=== PATIENT | male | born 1945 | race Caucasian/White ===

== ENCOUNTER → 2016-07-26 | Day surgery (SDC) | payer MEDICARE, BC ==
[~2016-07-26] MED LIST: ALBUTEROL17 GM INH; AMLODIPINE BESY10 MG PO; ASPIRIN81 M2 PO; CADUET 10 MG/401 TAB PO; COUMADIN7.5 MG PO; DARVOCET-N 1001 TAB PO; DIOVAN320 MG PO; FLONASE 0.05% N16 G1; HCTZ PO; HYDROCHLOROTHIA25 MG PO; LIPITOR; LIPITOR20 MG PO; LOSARTAN POTAS100 MG PO; MOBIC PO; NEURONTIN600 MG PO; PHENERGAN DM; SIMVASTATIN40 MG PO; TRAZODONE HCL150 MG PO; TUSSIONEX PENN480 ML PO; ZITHROMAX1 G/PKT PO; ZOCOR
--- NOTE | ~2016-07-26 | OR ---
Unit #: [id number] #: [id number] Patient: CRISTIAN BRAN [id number] [address] [place], [place] [address] [id number] MR#: [id number] NAME: CRISTIAN BRAN ROOM: Date of Procedure: 07/26/2016 Admission Date: 07/26/2016 Surgeon: Kumar Galvez Jr., M.D. : 1945 Attending Physician: Kumar Galvez Jr., M.D. Primary Care Physician: Freddie Phipps Jr., M.D. OPERATIVE REPORT INDICATIONS FOR PROCEDURE The patient is a 71-year-old white male, who recently called the office to set up colonoscopy for followup. He has had a past history of colon polyps and no colonoscopy for over 5 years. He has had no change in bowel habits. He has done well. He is brought in this time after prep at home for colonoscopy. He understands the procedure including risks, including that of perforation and bleeding, and consents. PREOPERATIVE DIAGNOSIS Past history of colon polyps, rule out recurrence. POSTOPERATIVE DIAGNOSES Two small polyps in the sigmoid colon and what appeared to be an anastomosis or could have been very large diverticulum. These polyps were 1 to 2 mm in diameter and appeared benign and there was extensive diverticulosis of the colon with very poor prep. ANESTHESIA MAC anesthesia. PROCEDURE PERFORMED Flexible colonoscopy to the cecum with biopsies of 2 small polyps of the rectosigmoid area. DESCRIPTION OF PROCEDURE The patient was positioned in White position with left side down. After being given MAC anesthesia, digital rectal examination was performed, which revealed no palpable mass or tenderness. No blood or stool in the rectal ampulla. Prostate was normal by palpation. The Olympus colonoscope was advanced through the anal canal up the rectum and retroflexed down to the area of the anorectal region. There was no evidence of any fissures. No significant internal hemorrhoids. The scope was then straightened and advanced up in the rectosigmoid area where there appeared to be an anastomosis. There were 2 small polyps in this area. They were 1 to 2 mm in diameter. They were basically removed with a couple of bites with the cold biopsy forceps each. These were sent to pathology. There was no evidence of any bleeding from the biopsy site. The scope was then advanced around the sigmoid area, where there was extensive diverticulosis with tortuosity requiring multiple manipulations. The scope was then finally advanced in the descending colon, around the splenic flexure and the transverse colon, around hepatic flexure and ascending colon, down in the area of the cecum. The light from the tip of Unit #: [id number] #: [id number] Patient: CRISTIAN BRAN the scope could be seen transilluminating through right lower quadrant abdominal wall area. Multiple attempts advancing the scope up the distal ileum were unsuccessful. The scope was slowly removed. There were no tumors, cancer, AVMs. No evidence of any colitis or acute diverticulitis. The caliber of the colon appeared normal throughout except for tortuosity of the sigmoid colon. There was extensive black-diverticulosis without diverticulitis and the 2 polyps described above and a possibly a previous surgical procedure on the sigmoid colon. The patient tolerated the procedure well and discharged in satisfactory condition. Dictated by... Kumar Galvez Jr., M.Jeffrey. LIZZY/elisa TD: 07/26/2016 08:43 JOB #: [id number] OPERATIVE REPORT Page 1 of 1 X Kumar Galvez MD X PROCEDURE OPERATIVE NOTE
== END | disposition home or self-care (01) ==
LOC: COPS 05:36
DX: Z12.11 Encounter for screening for malignant neoplasm of colon (principal); D12.5 Benign neoplasm of sigmoid colon; K57.30 Diverticulosis of large intestine without perforation or abscess without bleeding; Z86.010 Personal history of colon polyps; I10 Essential (primary) hypertension; E66.9 Obesity, unspecified; Z68.35 Body mass index [BMI] 35.0-35.9, adult; Z85.46 Personal history of malignant neoplasm of prostate; Z90.79 Acquired absence of other genital organ(s); Z79.82 Long term (current) use of aspirin
CPT/HCPCS: 88305; J2250